=== PATIENT | female | born 1995 | race Caucasian/White ===

== ENCOUNTER 2020-12-25 18:56 | Emergency (ER) | payer MEDICAID, SELFPAY ==
[2020-12-25 20:15] VITALS: BP 126/74; PULSE 73; RESP 16; TEMP 36.8; O2SAT 98; BMI 27.1
--- NOTE | 2020-12-25 21:05 | ED.ABDPAIN ---
HPI - Abdominal Pain General Chief Complaint: Abdominal Pain Stated Complaint: ABD pain Time Seen by Provider: 12/25/20 21:05 Source: patient Mode of arrival: ambulatory Limitations: no limitations History of Present Illness HPI narrative: Patient taking naproxen for last 3 weeks for headache since then complaining of epigastric pain burning sensation going to the mid chest your no nausea no vomiting no history of ulcers in the past no melena Related Data Previous Rx's Medication Instructions Recorded omeprazole 40 mg PO DAILY #20 cap 12/25/20 sucralfate 1 g PO BID #30 tab 12/25/20 Allergies Allergy/AdvReac Type Severity Reaction Status Date / Time No Known Allergies Allergy Verified 12/25/20 20:22 Review of Systems Review of Systems Yes all other systems are reviewed and are negative Physical Exam Vital Signs: Vital Signs: Last Vital Signs Temp 98.3 F 12/25/20 20:15 Pulse 73 12/25/20 20:15 Resp 16 12/25/20 20:15 BP 126/74 12/25/20 20:15 Pulse Ox 98 12/25/20 20:15 Body Mass Index 27.1 Appearance: Alert. Oriented X3. No acute distress. ENT: Pharynx normal. Oral Mucosa moist Neck: Normal inspection. Neck supple. CVS: Normal heart rate and rhythm. Pulses normal. Respiratory: No respiratory distress. Equal air entry bilateral, Abdomen: Soft mild epigastric tenderness Bowel sounds are present, no mass palpable, no CVA tenderness Skin: Skin warm and dry. Extremities: No lower extremity edema. Neuro: Oriented X 3. MDM - Abdominal Pain MDM Narrative Medical decision making narrative: Patient with non alcoholic gastritis likely superficial discharge on Prilosec Discharge Plan Discharge Clinical Impression: Gastritis Qualifiers: Gastritis type: superficial Chronicity: acute Gastritis bleeding: without bleeding Qualified Code(s): K29.00 - Acute gastritis without bleeding Patient Disposition: Home, Self-Care Instructions: Gastritis (ED) Additional Instructions: Drink plenty of fluids avoid taking NSAID like naproxen. Take Prilosec daily as prescribed Prescriptions: New omeprazole 40 mg capsule,delayed release(DR/EC) 40 mg PO DAILY Qty: 20 RF: 0 sucralfate 1 gram tablet 1 g PO BID Qty: 30 RF: 0 PMFSH Past Medical History Medical History No known health problems Social History Social History Advance Directives: No Advance Directives Information Provided: No Patient : No
[2020-12-25] MEDS: Omeprazole 40 MG CAPSULE.DR PO (21:29)
[2020-12-25] MEDS: Magnesium Hydrox/Alum Hydrox 30 ML ORAL.SUSP PO (21:29)
== END 2020-12-25 21:34 | disposition home or self-care (01) ==
PROVIDERS: Emergency Provider Internal Medicine
DX: K29.00 Acute gastritis without bleeding (principal)
CPT/HCPCS: 99283

== ENCOUNTER 2023-05-25 16:28 | Outpatient (REF) | payer MEDICAID, SELFPAY ==
[2023-05-25 18:26] LABS: TSH reflex Free T4 1.02 uIU/mL (0.32-4.0)
[2023-05-29 08:58] LABS: HPV mRNA E6/E7 rflx Not Detected (Not Detected)
[2023-05-29 12:34] LABS: C. trachomatis RNA TMA NOT DETECTED (NOT DETECTED); N. gonorrhoeae RNA TMA NOT DETECTED (NOT DETECTED)
[2023-05-29 16:38] LABS: Trichomonas (NAAT) NOT DETECTED (NOT DETECTED)
== END 2023-05-25 16:29 | disposition home or self-care (01) ==
LOC: HO.CHCLDS 16:28
PROVIDERS: Visit Provider Advanced Practice Midwife
DX: Z12.4 Encounter for screening for malignant neoplasm of cervix (principal); Z11.51 Encounter for screening for human papillomavirus (HPV); Z11.3 Encounter for screening for infections with a predominantly sexual mode of transmission; N92.0 Excessive and frequent menstruation with regular cycle
CPT/HCPCS: 36415; 84443; 87491; 87591; 87624; 87661; 88142